=== PATIENT | female | born 1940 | race Caucasian/White ===

== ENCOUNTER → 2016-08-28 | Outpatient (CLI) | payer MEDICARE, BC ==
[2016-08-28 11:58] LABS: CH 29.6; CHCM 32.4; HCT 41.7 % (34.0-46.0); HDW 2.75; HGB 13.3 gm/dL (11.4-16.0); MCH 29.4 pg (25.0-35.0); MCV 91.7 fL (80.0-100.0); Mean Platelet Volume 7.7; RBC 4.54 m/uL (3.80-5.40); RDW 12.8 % (11.5-15.5); WBC 8.1 k/uL (3.8-10.6)
[2016-08-28 12:42] LABS: Calcium 9.9 mg/dL (8.4-10.2); Potassium 4.5 mmol/L (3.5-5.1); Total Bilirubin 0.5 mg/dL (0.2-1.3); Total Protein 7.6 g/dL (6.3-8.2)
[2016-08-28 14:05] LABS: Hemoglobin A1C 6.2 % (4.2-6.1)
== END | disposition home or self-care (01) ==
LOC: LABWHC1 11:28
PROVIDERS: ATTEND Psychiatry & Neurology Psychiatry
DX: D64.9 Anemia, unspecified (principal); E11.9 Type 2 diabetes mellitus without complications; E78.5 Hyperlipidemia, unspecified; E03.9 Hypothyroidism, unspecified
CPT/HCPCS: 36415; 80053; 80061; 83036; 84439; 84443; 85027

== ENCOUNTER → 2017-02-15 | Outpatient (CLI) | payer MEDICARE, BC ==
[2017-02-15 13:30] LABS: CH 29.2; CHCM 33.5; HCT 36.3 % (34.0-46.0); HDW 2.62; HGB 12.7 gm/dL (11.4-16.0); MCH 30.6 pg (25.0-35.0); MCHC 34.9 g/dL (31.0-37.0); MCV 87.5 fL (80.0-100.0); Mean Platelet Volume 7.1; RBC 4.15 m/uL (3.80-5.40); RDW 13.5 % (11.5-15.5); WBC 8.2 k/uL (3.8-10.6)
[2017-02-15 13:39] LABS: Anion Gap 13 mmol/L; Blood Urea Nitrogen 15 mg/dL (7-17); Calcium 9.7 mg/dL (8.4-10.2); Carbon Dioxide 24 mmol/L (22-30); Chloride 106 mmol/L (98-107); Glucose 111 mg/dL (74-99); Non-African American GFR(MDRD) 54 (>60 ml/min/1.73 sqM); Potassium 4.3 mmol/L (3.5-5.1); Sodium 143 mmol/L (137-145)
== END | disposition home or self-care (01) ==
LOC: LABWHC1 12:27
PROVIDERS: ATTEND Psychiatry & Neurology Psychiatry
DX: E03.9 Hypothyroidism, unspecified (principal)
CPT/HCPCS: 36415; 80048; 84439; 84443; 85027

== ENCOUNTER → 2017-06-23 | Outpatient (CLI) | payer MEDICARE, BC | END | disposition home or self-care (01) | LOC: LABWHC1 13:02 | PROVIDERS: ATTEND Psychiatry & Neurology Psychiatry | DX: E03.9 Hypothyroidism, unspecified (principal) | CPT/HCPCS: 36415; 84439; 84443 ==

== ENCOUNTER 2017-12-03 13:39 | Inpatient (IN) | payer MEDICARE, BC ==
[2017-12-03] MEDS ORDERED: ONDANSETRON 4 MG/2 ML VIAL IVP STA (13:57)
[2017-12-03] MEDS ORDERED: SODIUM CHLORIDE 0.9% 1,000 ML IV STA (13:57)
[2017-12-03] MEDS ORDERED: MORPHINE SULFATE 4 MG/0.8 ML SYRINGE (INJ) IV STA (13:57)
--- NOTE | 2017-12-03 14:00 | ED ---
Nausea/Vomiting/Diarrhea HPI - General Chief complaint: Nausea/Vomiting/Diarrhea Stated complaint: Nausea/Vomiting Time Seen by Provider: 12/03/17 13:40 Source: patient Mode of arrival: EMS Limitations: no limitations - History of Present Illness Initial comments: Patient is a 77-year-old female presenting for abdominal pain and nausea/ vomiting. Patient states that this morning, she started coughing and vomiting up bile. It is also associated with lower abdominal pain is described as a pressure and constant without radiation. states that she's vomited at least 50 times but no diarrhea. She also denies any fevers or chills and admits to some dizziness as well as blood in her urine. She does have a history of kidney stones as well but no other intra-abdominal pathology recently. She states that she does have a history of appendectomy and her gallbladder has been taken out. - Related Data Home Medications Medication Instructions Recorded Confirmed Budesonide [Rhinocort Allergy] 1 spr EA NOSTRIL DAILY PRN 11/18/15 12/03/17 Cyclobenzaprine [Flexeril] 10 mg PO HS 11/18/15 12/03/17 Gabapentin [Neurontin] 100 mg PO BID 11/18/15 12/03/17 Gabapentin [Neurontin] 300 mg PO HS 11/18/15 12/03/17 Naproxen Sodium [Aleve] 220 mg PO Q12HR PRN 11/18/15 12/03/17 Omeprazole 20 mg PO HS 11/18/15 12/03/17 PARoxetine HCL [Paxil] 40 mg PO HS 11/18/15 12/03/17 Simvastatin [Zocor] 20 mg PO HS 11/18/15 12/03/17 Levothyroxine Sodium [Synthroid] 50 mcg PO QAM 07/05/16 12/03/17 Allergies Allergy/AdvReac Type Severity Reaction Status Date / Time metronidazole [From Flagyl] Allergy Swelling Verified 12/03/17 13:40 Review of Systems ROS Statement: Those systems with pertinent positive or pertinent negative responses have been documented in the HPI. Constitutional: Negative for chills, fatigue and fever. HENT: Negative for congestion. Respiratory: Negative for chest tightness, shortness of breath and wheezing. Negative for cough Cardiovascular: Negative for chest pain and palpitations. Gastrointestinal: Positive for abdominal pain. Negative for abdominal distention , diarrhea, positive for nausea and vomiting. Genitourinary: Negative for dysuria. Positive for hematuria Musculoskeletal: Positive for chronic back pain, neck pain and neck stiffness. Skin: Negative for color change. Neurological: Positive for dizziness, negative for speech difficulty, weakness and light-headedness. Psychiatric/Behavioral: Negative for agitation and confusion. The patient is not nervous/anxious. ROS Other: All systems not noted in ROS Statement are negative. Past Medical History Past Medical History: Fibromyalgia, GERD/Reflux, Hyperlipidemia Additional Past Medical History / Comment(s): LUMBAR PAIN. MULTIPLE KIDNEY. History of Any Multi-Drug Resistant Organisms: None Reported Past Surgical History: Adenoidectomy, Breast Surgery, Cholecystectomy, Tonsillectomy Additional Past Surgical History / Comment(s): 11/19/15 LEFT NEPHROLITHOTOMY. BREAST BX-NEG. Past Anesthesia/Blood Transfusion Reactions: Motion Sickness, Postoperative Nausea & Vomiting (PONV) Past Psychological History: Depression Smoking Status: Never smoker Past Alcohol Use History: None Reported Past Drug Use History: None Reported - Past Family History Brother(s) Family Medical History: Cancer Mother Family Medical History: No Reported History General Exam - General Exam Comments Initial Comments: Constitutional: Pt is oriented to person, place, and time. Pt appears well- developed and well-nourished. No distress. HENT: Head: Normocephalic and atraumatic. Eyes: EOM are normal. Neck: Normal range of motion. Neck supple. Cardiovascular: Normal rate, regular rhythm, S1 normal, S2 normal and normal heart sounds. Exam reveals no gallop and no friction rub. No murmur heard. Pulmonary/Chest: Effort normal and breath sounds normal. No tachypnea and no bradypnea. No respiratory distress. No wheezes or rales noted. Abdominal: Soft. Bowel sounds are normal. Pt exhibits no shifting dullness, no distension, no pulsatile liver, no fluid wave, no abdominal bruit and no ascites. There is mild tenderness to palpation of the lower abdomen at the suprapubic area. There is no rigidity, no rebound, no guarding, no tenderness at McBurney's point and negative Mijares's sign. Musculoskeletal: Normal range of motion. Neurological: Pt is alert and oriented to person, place, and time. No cranial nerve deficit. Skin: Skin is warm and dry. No rash noted. Pt is not diaphoretic. No erythema. No pallor. Psychiatric: Pt has a normal mood and affect. Pt behavior is normal. Thought content normal. Limitations: no limitations Course Vital Signs 12/03/17 12/03/17 12/03/17 13:40 14:55 17:16 Temperature 96.9 F L 96.8 F L 96.7 F L Pulse Rate 90 89 96 Respiratory 17 18 17 Rate Blood Pressure 174/87 163/80 139/69 O2 Sat by Pulse 96 93 L 96 Oximetry Medical Decision Making - Medical Decision Making Labs showed that there was leukocytosis of 15.1 and lactic acid was elevated at 2.9. Kidney function was preserved with a creatinine of 0.72 and BUS 23. A letter lites were also relatively within normal limits and there is no transaminitis or evidence of pancreatitis. Cardiac evaluation revealed that troponin was within normal limits and EKG showed no significant abnormalities. Patient was given fluids as well as morphine and Zofran but continued to have pain. Urinalysis was consistent for hematuria and borderline urinary tract infection. CT of the abdomen was performed and showed an obstructing 8 mm stone at the left UVJ as well as multiple stones in the right side that were nonobstructing. Because the patient continued to have pain as well as the findings on laboratory studies with the leukocytosis and elevated lactic acid, it was felt that the patient should be admitted to the hospital. Additionally, the patient was started on Rocephin .Explained all labs and diagnostic test results and that we will admit patient to hospital. Pt is agreeable to plan and case has been discussed with and they agree to accept the pt. case was also discussed with . - Lab Data Result diagrams: 12/03/17 13:48 12/03/17 13:48 Lab Results 12/03/17 12/03/17 12/03/17 Range/Units 13:48 13:48 13:48 WBC 15.1 H (3.8-10.6) k/uL RBC 4.23 (3.80-5.40) m/uL Hgb 12.5 (11.4-16.0) gm/dL Hct 38.3 (34.0-46.0) % MCV 90.5 (80.0-100.0) fL MCH 29.6 (25.0-35.0) pg MCHC 32.8 (31.0-37.0) g/dL RDW 13.1 (11.5-15.5) % Plt Count 252 (150-450) k/uL Neutrophils % 77 % Lymphocytes % 15 % Monocytes % 6 % Eosinophils % 0 % Basophils % 0 % Neutrophils # 11.7 H (1.3-7.7) k/uL Lymphocytes # 2.3 (1.0-4.8) k/uL Monocytes # 0.9 (0-1.0) k/uL Eosinophils # 0.0 (0-0.7) k/uL Basophils # 0.0 (0-0.2) k/uL Sodium 143 (137-145) mmol/L Potassium 3.8 (3.5-5.1) mmol/L Chloride 104 (98-107) mmol/L Carbon Dioxide 24 (22-30) mmol/L Anion Gap 15 mmol/L BUN 23 H (7-17) mg/dL Creatinine 0.72 (0.52-1.04) mg/dL Est GFR (CKD-EPI)AfAm >90 (>60 ml/min/1.73 sqM) Est GFR (CKD-EPI)NonAf 82 (>60 ml/min/1.73 sqM) Glucose 152 H (74-99) mg/dL Lactic Ac Sepsis Rflx Plasma Lactic Acid Ezra (0.7-2.0) mmol/L Calcium 9.1 (8.4-10.2) mg/dL Magnesium 1.6 (1.6-2.3) mg/dL Total Bilirubin 0.5 (0.2-1.3) mg/dL AST 30 (14-36) U/L ALT 33 (9-52) U/L Alkaline Phosphatase 82 (38-126) U/L Troponin I <0.012 (0.000-0.034) ng/mL Total Protein 6.6 (6.3-8.2) g/dL Albumin 3.9 (3.5-5.0) g/dL Lipase 93 (23-300) U/L Urine Color Urine Appearance (Clear) Urine pH (5.0-8.0) Ur Specific [place] (1.001-1.035) Urine Protein (Negative) Urine Glucose (UA) (Negative) Urine Ketones (Negative) Urine Blood (Negative) Urine Nitrite (Negative) Urine Bilirubin (Negative) Urine Urobilinogen (<2.0) mg/dL Ur Leukocyte Esterase (Negative) Urine RBC (0-5) /hpf Urine WBC (0-5) /hpf Ur Squamous Epith Cells (0-4) /hpf Urine Mucus (None) /hpf 12/03/17 12/03/17 12/03/17 Range/Units 14:07 14:25 15:13 WBC (3.8-10.6) k/uL RBC (3.80-5.40) m/uL Hgb (11.4-16.0) gm/dL Hct (34.0-46.0) % MCV (80.0-100.0) fL MCH (25.0-35.0) pg MCHC (31.0-37.0) g/dL RDW (11.5-15.5) % Plt Count (150-450) k/uL Neutrophils % % Lymphocytes % % Monocytes % % Eosinophils % % Basophils % % Neutrophils # (1.3-7.7) k/uL Lymphocytes # (1.0-4.8) k/uL Monocytes # (0-1.0) k/uL Eosinophils # (0-0.7) k/uL Basophils # (0-0.2) k/uL Sodium (137-145) mmol/L Potassium (3.5-5.1) mmol/L Chloride (98-107) mmol/L Carbon Dioxide (22-30) mmol/L Anion Gap mmol/L BUN (7-17) mg/dL Creatinine (0.52-1.04) mg/dL Est GFR (CKD-EPI)AfAm (>60 ml/min/1.73 sqM) Est GFR (CKD-EPI)NonAf (>60 ml/min/1.73 sqM) Glucose (74-99) mg/dL Lactic Ac Sepsis Rflx Y Plasma Lactic Acid Ezra 2.9 H* (0.7-2.0) mmol/L Calcium (8.4-10.2) mg/dL Magnesium (1.6-2.3) mg/dL Total Bilirubin (0.2-1.3) mg/dL AST (14-36) U/L ALT (9-52) U/L Alkaline Phosphatase (38-126) U/L Troponin I (0.000-0.034) ng/mL Total Protein (6.3-8.2) g/dL Albumin (3.5-5.0) g/dL Lipase (23-300) U/L Urine Color Light Yellow Urine Appearance Clear (Clear) Urine pH 7.0 (5.0-8.0) Ur Specific [place] 1.011 (1.001-1.035) Urine Protein Trace H (Negative) Urine Glucose (UA) Trace H (Negative) Urine Ketones Negative (Negative) Urine Blood Moderate H (Negative) Urine Nitrite Negative (Negative) Urine Bilirubin Negative (Negative) Urine Urobilinogen <2.0 (<2.0) mg/dL Ur Leukocyte Esterase Trace H (Negative) Urine RBC 121 H (0-5) /hpf Urine WBC 8 H (0-5) /hpf Ur Squamous Epith Cells <1 (0-4) /hpf Urine Mucus Rare H (None) /hpf - EKG Data EKG Comments: EKG shows normal sinus rhythm with intermittent PVCs. Rate is 86 bpm, WA interval 168, QRS 76, QTC 459. There is no significant ST depressions or elevations noted in any of the leads. Disposition Clinical Impression: Renal calculi, Elevated lactic acid level, Intractable abdominal pain, Hydronephrosis, left Disposition: ADMITTED IP TO THIS [facility] Condition: Stable Referrals: Asaf Phillip DO [Primary Care Provider] - 1-2 days Decision to Admit Reason: Admit from EC Decision Date: 12/03/17 Decision Time: 17:15
[2017-12-03 14:13] LABS: Basophils % (A) 0 %; Eosinophils % (A) 0 %; HCT 38.3 % (34.0-46.0); HGB 12.5 gm/dL (11.4-16.0); Lymphocytes # (A) 2.3 k/uL (1.0-4.8); Lymphocytes % (A) 15 %; MCH 29.6 pg (25.0-35.0); MCHC 32.8 g/dL (31.0-37.0); MCV 90.5 fL (80.0-100.0); Mean Platelet Volume 7.9; Monocytes # (A) 0.9 k/uL (0-1.0); Monocytes % (A) 6 %; Neutrophils # (A) 11.7 k/uL (1.3-7.7); Neutrophils % (A) 77 %; Platelet Count 252 k/uL (150-450); RBC 4.23 m/uL (3.80-5.40); RDW 13.1 % (11.5-15.5); WBC 15.1 k/uL (3.8-10.6)
[2017-12-03] MEDS: SODIUM CHLORIDE 0.9% 1,000 ML IV STA (14:13)
[2017-12-03 14:23] LABS: ALT 33 U/L (9-52); AST 30 U/L (14-36); Albumin 3.9 g/dL (3.5-5.0); Alkaline Phosphatase 82 U/L (38-126); Anion Gap 15 mmol/L; Blood Urea Nitrogen 23 mg/dL (7-17); Calcium 9.1 mg/dL (8.4-10.2); Carbon Dioxide 24 mmol/L (22-30); Chloride 104 mmol/L (98-107); Glucose 152 mg/dL (74-99); Lipase 93 U/L (23-300); Magnesium 1.6 mg/dL (1.6-2.3); Potassium 3.8 mmol/L (3.5-5.1); Sodium 143 mmol/L (137-145); Total Bilirubin 0.5 mg/dL (0.2-1.3); Total Protein 6.6 g/dL (6.3-8.2)
[2017-12-03 15:22] LABS: Appearance,Urine Clear (Clear); Bilirubin,Urine Negative (Negative); Blood,Urine Moderate (Negative); Color,Urine Light Yellow; Glucose,Urine (UA) Trace (Negative); Ketones,Urine Negative (Negative); Leukocyte Esterase,Urine Trace (Negative); Mucus,Urine Rare /hpf; Nitrite,Urine Negative (Negative); Protein,Urine Trace (Negative); RBC,Urine 121 /hpf (0-5); Specific Gravity,Urine 1.011 (1.001-1.035); Squamous Epithelial Cell,Urine <1 /hpf (0-4); Urobilinogen,Urine <2.0 mg/dL (<2.0); WBC,Urine 8 /hpf (0-5)
[2017-12-03] MEDS ORDERED: cefTRIAXone IN SWFI 1,000 MG/10 ML SYRINGE IVP STA (15:27)
--- NOTE | 2017-12-03 15:36 | CT ---
EXAMINATION TYPE: CT abdomen pelvis wo con DATE OF EXAM: 12/03/2017 COMPARISON: 09/04/2015 HISTORY: 77-year-old female Nausea, vomiting. Pain, evaluate for renal stone CT DLP: 428.7 mGycm. Automated exposure control for dose reduction was used. TECHNIQUE: Contiguous axial scanning of the abdomen and pelvis without IV contrast. Coronal and sagit natalie reconstructions performed. FINDINGS: Imaging did not extend through the hepatic dome. Mild dependent atelectasis. Tiny hiatal hernia. Noncontrast appearance of the visualized liver, adrenal glands, spleen with a hilar splenule, and contreras creas show no gross abnormal mobility. There is an extrarenal pelvis on the right with 3 nonobstructive calculi measuring up to 1 cm in smal lest measuring 4 mm. The larger one similar calculus is in the upper pole calyceal system. On the left, there is an 8 mm nonobstructive lower pole calculus and a 8 mm obstructing calculus at t he UPJ causing [id number] hydronephrosis. No dilated small bowel, free fluid, or free air. No mesenteric or retroperitoneal lymphadenopathy. Mild stool burden. No pericolonic inflammatory change. Bladder is urine distended. The bladder is distended prominently up to 15.0 cm cranial caudal. Uteru s and small ovaries are visualized. No abnormal fluid collection in the pelvis or pelvic lymphadenopa thy. Bones: Degenerative changes mid to lower lumbar spine. No osseous destructive process. IMPRESSION: 1. An 8 mm calculus at the left UPJ causing mild to moderate obstructive uropathy. Additional 8 mm n onobstructive left lower pole renal calculus. 2. 3 nonobstructive calculi on the right measuring up to 1 cm. This largest 1 cm calculus is in the upper pole calyceal system and may soon pass into the ureter. 3. Prominent distention of the urinary bladder up to 15 cm. Please correlate to ensure that this rep resents voluntary retention.
[2017-12-03] MEDS ORDERED: MORPHINE SULFATE 4 MG/0.8 ML SYRINGE (INJ) IVP STA (15:39)
[2017-12-03] MEDS ORDERED: SODIUM CHLORIDE 0.9% 1,000 ML IV ONE (15:39)
[2017-12-03] MEDS ORDERED: NALOXONE 0.4 MG/ML 1 ML VIAL IV PRN (17:53)
[2017-12-03] MEDS ORDERED: MORPHINE SULFATE 4 MG/0.8 ML SYRINGE (INJ) IV PRN (17:53)
[2017-12-03] MEDS ORDERED: ONDANSETRON 4 MG/2 ML VIAL IVP PRN (17:53)
[2017-12-03] MEDS ORDERED: ACETAMINOPHEN TAB 325 MG TAB PO PRN (17:53)
[2017-12-03 18:48] VITALS: BMI 26.8
[2017-12-03 22:37] VITALS: RESP 18
[2017-12-04] MEDS: PIPERACILLIN-TAZOBACTAM 3.375 GM in DEXTROSE/WATER 1 50ML.BAG IVPB SCH ×2 (00:49→07:59)
[2017-12-04] MEDS: SODIUM CHLORIDE 0.9% 1,000 ML IV STA (06:43)
[2017-12-04 08:05] VITALS: BP 162/85; PULSE 76; TEMP 97.9
--- NOTE | 2017-12-04 09:02 | P.GSCN ---
History of Present Illness Consult date: 12/04/17 History of present illness: I was asked to see this pleasant 77-year-old female for left ureteral stone. She presented to the emergency room with a short period of severe nausea vomiting and flank pain. The patient has a known history of kidney stones. I' ve done bilateral percutaneous nephrostolithotomy is on her. Her computed tomography scan identified an 8 mm proximal ureteral stone on the left and bilateral renal stones each about 7 mm in diameter. He was brought in the hospital for pain control and IV fluids. Her pain has been under control at this point in time. He's had no fever or chills. There is no evidence of infection. She did have some lower urinary tract symptoms but I do think this is unrelated to her stones. Review of Systems - Constitutional Reports as per HPI - Genitourinary Genitourinary: Reports as per HPI, Reports urgency, Reports urinary frequency Past Medical History Past Medical History: Fibromyalgia, GERD/Reflux, Hyperlipidemia Additional Past Medical History / Comment(s): LUMBAR PAIN. MULTIPLE KIDNEY. History of Any Multi-Drug Resistant Organisms: None Reported Past Surgical History: Adenoidectomy, Breast Surgery, Cholecystectomy, Tonsillectomy Additional Past Surgical History / Comment(s): 11/19/15 LEFT NEPHROLITHOTOMY. BREAST BX-NEG. Past Anesthesia/Blood Transfusion Reactions: Motion Sickness, Postoperative Nausea & Vomiting (PONV) Past Psychological History: Depression Smoking Status: Never smoker Past Alcohol Use History: None Reported Past Drug Use History: None Reported - Past Family History Brother(s) Family Medical History: Cancer Mother Family Medical History: No Reported History Medications and Allergies Home Medications Medication Instructions Recorded Confirmed Type Gabapentin [Neurontin] 300 mg PO BID 11/18/15 12/03/17 History Omeprazole 20 mg PO DAILY 11/18/15 12/03/17 History PARoxetine HCL [Paxil] 40 mg PO DAILY 11/18/15 12/03/17 History Simvastatin [Zocor] 20 mg PO HS 11/18/15 12/03/17 History Levothyroxine Sodium [Synthroid] 25 mcg PO DAILY 12/03/17 12/03/17 History Allergies Allergy/AdvReac Type Severity Reaction Status Date / Time metronidazole [From Flagyl] Allergy Swelling Verified 12/03/17 18:36 Surgical - Exam Vital Signs Temp Pulse Resp BP Pulse Ox 96.9 F L 90 17 174/87 96 12/03/17 13:40 12/03/17 13:40 12/03/17 13:40 12/03/17 13:40 12/03/17 13:40 - General well developed, well nourished, no distress - Eyes PERRL - ENT no hearing loss - Neck trachea midline - Respiratory normal expansion, normal respiratory effort - Cardiovascular Rhythm: regular - Abdomen Abdomen: soft, non tender - Integumentary no rash - Neurologic normal coordination, normal sensation - Musculoskeletal normal posture - Psychiatric oriented to time, oriented to person, oriented to place, speech is normal, memory intact Results - Labs 12/03/17 13:48 12/03/17 13:48 Abnormal Lab Results - Last 24 Hours (Table) 12/03/17 12/03/17 12/03/17 Range/Units 13:48 13:48 14:07 WBC 15.1 H (3.8-10.6) k/uL Neutrophils # 11.7 H (1.3-7.7) k/uL BUN 23 H (7-17) mg/dL Glucose 152 H (74-99) mg/dL Plasma Lactic Acid Ezra 2.9 H* (0.7-2.0) mmol/L Urine Protein (Negative) Urine Glucose (UA) (Negative) Urine Blood (Negative) Ur Leukocyte Esterase (Negative) Urine RBC (0-5) /hpf Urine WBC (0-5) /hpf Urine Mucus (None) /hpf 12/03/17 Range/Units 15:13 WBC (3.8-10.6) k/uL Neutrophils # (1.3-7.7) k/uL BUN (7-17) mg/dL Glucose (74-99) mg/dL Plasma Lactic Acid Ezra (0.7-2.0) mmol/L Urine Protein Trace H (Negative) Urine Glucose (UA) Trace H (Negative) Urine Blood Moderate H (Negative) Ur Leukocyte Esterase Trace H (Negative) Urine RBC 121 H (0-5) /hpf Urine WBC 8 H (0-5) /hpf Urine Mucus Rare H (None) /hpf Microbiology - Last 24 Hours (Table) 12/03/17 15:13 Urine Culture - Preliminary Urine,Catheterized Diabetes panel 12/03/17 Range/Units 13:48 Sodium 143 (137-145) mmol/L Potassium 3.8 (3.5-5.1) mmol/L Chloride 104 (98-107) mmol/L Carbon Dioxide 24 (22-30) mmol/L BUN 23 H (7-17) mg/dL Creatinine 0.72 (0.52-1.04) mg/dL Glucose 152 H (74-99) mg/dL Calcium 9.1 (8.4-10.2) mg/dL AST 30 (14-36) U/L ALT 33 (9-52) U/L Alkaline Phosphatase 82 (38-126) U/L Total Protein 6.6 (6.3-8.2) g/dL Albumin 3.9 (3.5-5.0) g/dL Calcium panel 12/03/17 Range/Units 13:48 Calcium 9.1 (8.4-10.2) mg/dL Albumin 3.9 (3.5-5.0) g/dL Pituitary panel 12/03/17 Range/Units 13:48 Sodium 143 (137-145) mmol/L Potassium 3.8 (3.5-5.1) mmol/L Chloride 104 (98-107) mmol/L Carbon Dioxide 24 (22-30) mmol/L BUN 23 H (7-17) mg/dL Creatinine 0.72 (0.52-1.04) mg/dL Glucose 152 H (74-99) mg/dL Calcium 9.1 (8.4-10.2) mg/dL Adrenal panel 12/03/17 Range/Units 13:48 Sodium 143 (137-145) mmol/L Potassium 3.8 (3.5-5.1) mmol/L Chloride 104 (98-107) mmol/L Carbon Dioxide 24 (22-30) mmol/L BUN 23 H (7-17) mg/dL Creatinine 0.72 (0.52-1.04) mg/dL Glucose 152 H (74-99) mg/dL Calcium 9.1 (8.4-10.2) mg/dL Total Bilirubin 0.5 (0.2-1.3) mg/dL AST 30 (14-36) U/L ALT 33 (9-52) U/L Alkaline Phosphatase 82 (38-126) U/L Total Protein 6.6 (6.3-8.2) g/dL Albumin 3.9 (3.5-5.0) g/dL - Imaging CT scan - abdomen: report reviewed, image reviewed CT scan - pelvis: report reviewed, image reviewed Assessment and Plan Assessment: Impression: Left ureteral calculus with obstruction. Bilateral renal stones. Recommendation: The patient is comfortable from a urologic standpoint she can be discharged home. We discussed all the treatment options. She will attempt to spontaneously pass the stone this week. If she fails she'll be set up for shockwave lithotripsy a week from Tuesday. Is been instructed to contact the office for follow-up. She's also been instructed to contact the office at any time if the flank pain returns.
[2017-12-04] MEDS ORDERED: cefTRIAXone IN SWFI 1,000 MG/10 ML SYRINGE IVP SCH (16:00)
--- NOTE | 2017-12-04 17:35 | P.DS ---
Providers Date of admission: 12/03/17 17:53 Attending physician: Miguel Lopez MD Consults: 12/03/17 17:58 Consult Physician Routine Consulting Provider: Haroon Tang Consult Reason/Comments: Renal calculi with hydronephrosis Do you want consulting provider notified?: Already Contacted Primary care physician: Asaf Phillip [facility] Course: Please refer to my HPI Patient Condition at Discharge: Stable Plan - Discharge Summary New Discharge Prescriptions: No Action Gabapentin [Neurontin] 300 mg PO BID Simvastatin [Zocor] 20 mg PO HS PARoxetine HCL [Paxil] 40 mg PO DAILY Omeprazole 20 mg PO DAILY Levothyroxine Sodium [Synthroid] 25 mcg PO DAILY Discharge Medication List Gabapentin [Neurontin] 300 mg PO BID 11/18/15 [History] Omeprazole 20 mg PO DAILY 11/18/15 [History] PARoxetine HCL [Paxil] 40 mg PO DAILY 11/18/15 [History] Simvastatin [Zocor] 20 mg PO HS 11/18/15 [History] Levothyroxine Sodium [Synthroid] 25 mcg PO DAILY 12/03/17 [History] Follow up Appointment(s)/Referral(s): Asaf Phillip DO [Primary Care Provider] - 1-2 days Haroon Tang MD [STAFF PHYSICIAN] - 1 Week Patient Instructions/Handouts: Kidney Stones (GEN), Renal Colic (GEN) Activity/Diet/Wound Care/Special Instructions: Call Dr Tang's office on Tuesday to set up an appointment for shock wave therapy. Drink plenty of fluids. Strain your urine. Call Dr. Tang if you experience increase in pain, fever, vomitting, or if you have any other concerns or questions. May take Aleive for pain. Discharge Disposition: HOME SELF-CARE
--- NOTE | 2017-12-04 17:35 | P.HPIM ---
History of Present Illness 77-year-old female presented with the left to severe crampy and sharp for flank pain found to have a lesser degree rectal stone pain significant improved now patient was evaluated neurology patient was having nausea vomiting resulting and lactic acidosis which improved with IV fluids. Patient has leukocytosis which is reactive patient urine is not impressive for urinary tract infection patient doesn't have any fever dysuria neurology as they are not requiring antibiotics and I do not believe patient has urinary tract infection or sepsis at this time I do not believe she she will require antibiotics. But patient was advised to call urology if she ends up having fever. Patient will follow- up with urology as an outpatient for systolic with lithotripsy if needed on Tuesday patient is known to urology and had percutaneous nephrostomy in the past. Review of Systems REVIEW OF SYSTEMS: CONSTITUTIONAL: No fever, no malaise, no fatigue. HEENT: No recent visual problems or hearing problems. Denied any sore throat. CARDIOVASCULAR: No chest pain, orthopnea, PND, no palpitations, no syncope. PULMONARY: No shortness of breath, no cough, no hemoptysis. GASTROINTESTINAL: No diarrhea, no nausea, no vomiting, Normoactive bowel sounds. NEUROLOGICAL: No headaches, no weakness, no numbness. HEMATOLOGICAL: Denies any bleeding or petechiae. GENITOURINARY: Denies any burning micturition, frequency, or urgency. MUSCULOSKELETAL/RHEUMATOLOGICAL: Denies any joint pain, swelling, or any muscle pain. ENDOCRINE: Denies any polyuria or polydipsia. The rest of the 14-point review of systems is negative. Past Medical History Past Medical History: Fibromyalgia, GERD/Reflux, Hyperlipidemia Additional Past Medical History / Comment(s): LUMBAR PAIN. MULTIPLE KIDNEY. History of Any Multi-Drug Resistant Organisms: None Reported Past Surgical History: Adenoidectomy, Breast Surgery, Cholecystectomy, Tonsillectomy Additional Past Surgical History / Comment(s): 11/19/15 LEFT NEPHROLITHOTOMY. BREAST BX-NEG. Past Anesthesia/Blood Transfusion Reactions: Motion Sickness, Postoperative Nausea & Vomiting (PONV) Past Psychological History: Depression Smoking Status: Never smoker Past Alcohol Use History: None Reported Past Drug Use History: None Reported - Past Family History Brother(s) Family Medical History: Cancer Mother Family Medical History: No Reported History Medications and Allergies Home Medications Medication Instructions Recorded Confirmed Type Gabapentin [Neurontin] 300 mg PO BID 11/18/15 12/03/17 History Omeprazole 20 mg PO DAILY 11/18/15 12/03/17 History PARoxetine HCL [Paxil] 40 mg PO DAILY 11/18/15 12/03/17 History Simvastatin [Zocor] 20 mg PO HS 11/18/15 12/03/17 History Levothyroxine Sodium [Synthroid] 25 mcg PO DAILY 12/03/17 12/03/17 History Allergies Allergy/AdvReac Type Severity Reaction Status Date / Time metronidazole [From Flagyl] Allergy Swelling Verified 12/03/17 18:36 Physical Exam Vitals: Vital Signs Temp Pulse Pulse Pulse Resp BP BP 12/04/17 08:02 97.9 F 76 18 162/85 12/04/17 08:00 76 12/04/17 06:54 97.8 F 99 18 161/89 12/04/17 02:00 98 F 98 18 130/73 12/04/17 00:00 95 18 12/03/17 19:50 95 18 12/03/17 19:38 97.6 F 95 16 145/79 12/03/17 19:19 97.9 F 95 18 163/83 12/03/17 18:11 97.4 F L 97 17 144/69 Pulse Ox 12/04/17 08:02 95 12/04/17 08:00 12/04/17 06:54 95 12/04/17 02:00 96 12/04/17 00:00 12/03/17 19:50 12/03/17 19:38 93 L 12/03/17 19:19 94 L 12/03/17 18:11 94 L Intake and Output 12/04/17 12/04/17 12/04/17 06:59 14:59 22:59 Output Total 1960 1425 Balance -1961 -1425 Output: Urine 1700 1425 Post Void Residual 261 Other: Voiding Method Toilet Toilet # Voids 1 PHYSICAL EXAMINATION: GENERAL: The patient is alert and oriented x3, not in any acute distress. Well developed, well nourished. HEENT: Pupils are round and equally reacting to light. EOMI. No scleral icterus. No conjunctival pallor. Normocephalic, atraumatic. No pharyngeal erythema. No thyromegaly. CARDIOVASCULAR: S1 and S2 present. No murmurs, rubs, or gallops. PULMONARY: Chest is clear to auscultation, no wheezing or crackles. ABDOMEN: Soft, nontender, nondistended, normoactive bowel sounds. No palpable organomegaly. MUSCULOSKELETAL: No joint swelling or deformity. EXTREMITIES: No cyanosis, clubbing, or pedal edema. NEUROLOGICAL: Gross neurological examination did not reveal any focal deficits. SKIN: No rashes. Results CBC & Chem 7: 12/03/17 13:48 12/03/17 13:48 Labs: Microbiology - Last 24 Hours (Table) 12/03/17 15:13 Urine Culture - Preliminary Urine,Catheterized Thrombosis Risk Factor Assmnt - Choose All That Apply Any of the Below Risk Factors Present?: Yes Other Risk Factors: Yes Each Risk Factor Represents 3 Points: Age 75 years or older Thrombosis Risk Factor Assessment Total Risk Factor Score: 3 Thrombosis Risk Factor Assessment Level: Moderate Risk Assessment and Plan Plan: -Left-sided ureteral calculus: Improved pain was evaluated by urology will be discharged home today. --hyperlipidemia gastroesophageal reflux disease -Fibromyalgia -Depression For above-mentioned chronic medical problems patient will continue her home medications without any changes and she will not require any antibiotics at this time.
== END 2017-12-04 13:11 | disposition home or self-care (01) | DRG 694 ==
LOC: EC 13:39 → 6PED 17:53
PROVIDERS: ADMIT Internal Medicine; ATTEND Internal Medicine
DX: N13.2 Hydronephrosis with renal and ureteral calculous obstruction (principal); E87.2 Acidosis; E78.5 Hyperlipidemia, unspecified; K21.9 Gastro-esophageal reflux disease without esophagitis; M79.7 Fibromyalgia; F32.9 Major depressive disorder, single episode, unspecified; Z79.890 Hormone replacement therapy; Z79.899 Other long term (current) drug therapy; Z90.49 Acquired absence of other specified parts of digestive tract; Z87.442 Personal history of urinary calculi; Z88.8 Allergy status to other drugs, medicaments and biological substances
CPT/HCPCS: 36415; 74176; 80053; 81001; 83605; 83690; 83735; 84484; 85025; 87040; 87086; 93005; 96361; 96374; 96375; 96376; 99285

== ENCOUNTER → 2017-12-20 | Outpatient (CLI) | payer MEDICARE, BC ==
--- NOTE | 2017-12-20 09:28 | XR ---
EXAMINATION TYPE: XR KUB DATE OF EXAM: 12/20/2017 8:52 AM CLINICAL HISTORY: Status post left-sided lithotripsy TECHNIQUE: Single supine KUB image of the abdomen is obtained. COMPARISON: CT dated 12/03/2017 FINDINGS: There is redemonstration of a known 3 right renal calculi measuring approximately 1.4 cm, 0 .7 cm, and 0.4 cm. There is a punctate 3 mm left renal calculus visualized. The previously seen on CT calculus at the left ureterovesicular junction is no longer present. Phleboliths within the pelvis a ppear similar to the prior exam of 07/07/2016. Scattered gas is seen in non-distended small bowel loo ps. Gas and fecal material is seen in non-distended colon. Degenerative changes of the lumbosacral ju nction are moderate. Cholecystectomy clips are partially visualized. Mild femoral acetabular arthropa thy. The lung bases are clear and the osseous structures are intact. IMPRESSION: 1. The previously seen left ureteropelvic junction calculus is no longer evident status post lithotri psy. 3 mm left sided calculus remains. 2. The 3 known right renal calculi are visualized radiographically.
== END | disposition home or self-care (01) ==
LOC: RADXRMAIN 08:38
PROVIDERS: ATTEND Urology
DX: N20.0 Calculus of kidney (principal); Z98.890 Other specified postprocedural states
CPT/HCPCS: 74018

== ENCOUNTER → 2018-06-02 | Outpatient (CLI) | payer MEDICARE, BC ==
[2018-06-02 13:25] LABS: Basophils # (A) 0.1 k/uL (0-0.2); Basophils % (A) 1 %; Eosinophils # (A) 0.5 k/uL (0-0.7); Eosinophils % (A) 5 %; HCT 39.2 % (34.0-46.0); HGB 12.5 gm/dL (11.4-16.0); Lymphocytes # (A) 3.1 k/uL (1.0-4.8); Lymphocytes % (A) 35 %; MCH 28.2 pg (25.0-35.0); MCV 88.1 fL (80.0-100.0); Mean Platelet Volume 6.9; Monocytes # (A) 0.5 k/uL (0-1.0); Monocytes % (A) 6 %; Neutrophils # (A) 4.3 k/uL (1.3-7.7); Neutrophils % (A) 50 %; Platelet Count 273 k/uL (150-450); RBC 4.44 m/uL (3.80-5.40); RDW 14.4 % (11.5-15.5); WBC 8.7 k/uL (3.8-10.6)
[2018-06-02 13:31] LABS: ALT 36 U/L (9-52); AST 54 U/L (14-36); Albumin/Globulin Ratio 1.2; Alkaline Phosphatase 90 U/L (38-126); Anion Gap 10 mmol/L; Blood Urea Nitrogen 13 mg/dL (7-17); Calcium 9.5 mg/dL (8.4-10.2); Carbon Dioxide 27 mmol/L (22-30); Chloride 104 mmol/L (98-107); Globulin 3.3 g/dL; Glucose 108 mg/dL (74-99); Sodium 141 mmol/L (137-145); Total Bilirubin 0.4 mg/dL (0.2-1.3); Total Protein 7.3 g/dL (6.3-8.2)
--- NOTE | 2018-06-02 13:39 | XR ---
EXAMINATION TYPE: XR chest 2V DATE OF EXAM: 06/02/2018 COMPARISON: 07/08/2016 HISTORY: Shortness of breath TECHNIQUE: Frontal and lateral views of the chest are obtained. FINDINGS: Scattered senescent parenchymal changes noted. Hyperinflation compatible with COPD. No evidence for infiltrate. No evidence for atelectasis. Heart size is stable. Mediastinal structures are stable and grossly unremarkable. No evidence for hilar prominence. Degenerative changes dorsal spine. IMPRESSION: 1. No evidence for acute pulmonary disease.
[2018-06-02 13:46] LABS: Prothrombin Time 9.5 sec (9.0-12.0)
[2018-06-02 13:48] LABS: Partial Thromboplastin Time 21.7 sec (22.0-30.0)
== END | disposition home or self-care (01) ==
LOC: LABWHC1 12:57
PROVIDERS: ATTEND Neurological Surgery
DX: Z01.818 Encounter for other preprocedural examination (principal)
CPT/HCPCS: 36415; 71046; 80053; 85025; 85610; 85730; 87070; 87086; 93005

== ENCOUNTER → 2018-08-09 | Outpatient (CLI) | payer MEDICARE, BC ==
[2018-08-09 13:49] LABS: Basophils # (A) 0.1 k/uL (0-0.2); Basophils % (A) 1 %; Eosinophils # (A) 0.3 k/uL (0-0.7); Eosinophils % (A) 3 %; HCT 35.8 % (34.0-46.0); HGB 11.6 gm/dL (11.4-16.0); Hypochromasia Moderate; Lymphocytes # (A) 2.5 k/uL (1.0-4.8); Lymphocytes % (A) 27 %; MCH 28.6 pg (25.0-35.0); MCHC 32.4 g/dL (31.0-37.0); MCV 88.4 fL (80.0-100.0); Mean Platelet Volume 6.8; Monocytes # (A) 0.7 k/uL (0-1.0); Monocytes % (A) 8 %; Neutrophils # (A) 5.5 k/uL (1.3-7.7); Neutrophils % (A) 60 %; Platelet Count 394 k/uL (150-450); RBC 4.05 m/uL (3.80-5.40); RDW 14.2 % (11.5-15.5); WBC 9.2 k/uL (3.8-10.6)
[2018-08-09 19:36] LABS: T4, Free (Free Thyroxine) 1.2 ng/dL (0.80-1.80)
== END ==
LOC: LABWHC1 12:17
PROVIDERS: ATTEND Physician Assistant Medical
DX: L29.8 Other pruritus (principal)
CPT/HCPCS: 36415; 82565; 84439; 84450; 84460; 84520; 85025

== ENCOUNTER → 2018-10-04 | Outpatient (CLI) | payer MEDICARE, BC ==
[2018-10-04 13:35] LABS: HCT 38.5 % (34.0-46.0); HGB 11.8 gm/dL (11.4-16.0); Hypochromasia Slight; MCH 26.7 pg (25.0-35.0); MCHC 30.5 g/dL (31.0-37.0); MCV 87.4 fL (80.0-100.0); Mean Platelet Volume 6.4; Platelet Count 359 k/uL (150-450); RDW 15.6 % (11.5-15.5); WBC 8.7 k/uL (3.8-10.6)
[2018-10-04 21:26] LABS: Albumin 4.1 g/dL (3.80-4.90); Albumin/Globulin Ratio 1.52 (1.60-3.17); Anion Gap 9.6 mmol/L (4.00-12.00); Calcium 9.2 mg/dL (8.7-10.3); Carbon Dioxide 27.4 mmol/L (21.6-31.8); Globulin 2.7 g/dL (1.6-3.3); Potassium 4.3 mmol/L (3.5-5.5); Total Bilirubin 0.3 mg/dL (0.3-1.2); Total Protein 6.8 g/dL (6.2-8.2)
== END | disposition home or self-care (01) ==
LOC: LABWHC1 12:54
PROVIDERS: ATTEND Thoracic Surgery (Cardiothoracic Vascular Surgery)
DX: E03.9 Hypothyroidism, unspecified (principal); E63.8 Other specified nutritional deficiencies
CPT/HCPCS: 36415; 80053; 84134; 84443; 85027

== ENCOUNTER → 2018-10-18 | Outpatient (CLI) | payer MEDICARE, BC ==
--- NOTE | 2018-10-18 15:53 | XR ---
EXAMINATION TYPE: XR lumbar spine with bend/flex DATE OF EXAM: 10/18/2018 CLINICAL HISTORY: Low back surgery TECHNIQUE: Frontal, lateral, and oblique images of the lumbar spine are obtained. COMPARISON: CT abdomen pelvis dated 12/03/2017 FINDINGS: There is a very mild S-shaped scoliotic curvature of the lumbar spine visually with a Martinez angle less than 10 degrees. There is partial resection of the posterior elements at L3-S1. There is an age-indeterminate compression deformity of the L3 vertebral body with vertebral body heig ht loss of approximately 30%. This was not appreciated on the prior exam of 11/25/2017. The lateral view demonstrates no malalignment with slight straightening of the usual lumbar lordosis. Multilevel facet arthropathy is seen. Intervertebral disc space narrowing is present at L4-5 and L5- S1 with small anterior osteophytes throughout the lumbar spine. Flexion and extension imaging on the lateral view demonstrates no evidence of malalignment. Oblique images demonstrate postsurgical change. No significant neural foraminal narrowing is seen rad iographically. IMPRESSION: 1. Age-indeterminate compression deformity of the L3 vertebral body that was not present on the prior of 12/03/2017. Correlate with point tenderness. If there is further concern MRI could assess for bone marrow edema. 2. Postsurgical changes of the lower lumbar spine. No malalignment. Moderate multilevel degenerative change.
== END | disposition home or self-care (01) ==
LOC: RADXRMAIN 14:42
PROVIDERS: ATTEND Neurological Surgery
DX: M54.5 Low back pain (principal); Z98.890 Other specified postprocedural states
CPT/HCPCS: 72114

== ENCOUNTER → 2018-10-25 | Outpatient (CLI) | payer MEDICARE, BC ==
--- NOTE | 2018-10-25 16:07 | MR ---
EXAMINATION TYPE: MR lumbar spine wo con DATE OF EXAM: 10/25/2018 COMPARISON: Plain film 10/18/2017 HISTORY: Stenosis, back pain x 2 years TECHNIQUE: Multiplanar, multisequence images of the lumbar spine were acquired. L1-L2: Normal disc appearance without desiccation. No herniation, protrusion or disc bulging. No ca nal stenosis is present. Foramina are patent bilaterally. L2-L3: There is a minimal retropulsion due to superior endplate fracture, only mild anterior mass eff ect on the thecal sac. Facet arthropathy with hypertrophy of the ligamentum flavum causes posterior l ateral mass effect on the thecal sac. Circumferential extension endplate disc complex extends lateral ly, no significant foraminal encroachment. L3-L4: Circumferential posterior disc bulge causes mild anterior mass effect on the thecal sac. There is facet arthropathy change present. Circumferential extension endplate disc complex results in bila teral foraminal encroachment which is contributed by the listhesis. L4-L5: Circumferential posterior disc bulge contacts the anterior thecal sac and extends laterally to cause some foraminal encroachment greater on the right than on the left possibly contributed by the scoliosis. No significant spinal stenosis. L5-S1: Posterior broad-based disc bulge is present. No evident spinal stenosis. There is facet arthro yesenia change. Circumferential extension endplate disc complex causes some foraminal encroachment grea ter on the left. Lumbar segments are intact. No paraspinal masses are identified. Conus medullaris has a normal appe arance. Anterior wedging present at L3 to the level due to superior endplate fracture, low to interme diate signal present at the superior endplate on T1 and intermediate to high signal on T2-weighted se quences suggesting possible subacute fracture. There is multilevel spondylosis with endplate discogen ic marrow signal change. Loss of disc height signal present at intervertebral levels, there is also v acuum phenomenon present at multiple levels. Minimal retrolisthesis grade 1 L5-S1, L3-4. Postop maldonado es are noted status post posterior fusion, fluid signal posterior to the thecal sac is intermediate o n T1 and increased T2 with internal septations suspected at the site of the patient's prior surgery w hich likely represents seroma but is a postop fluid collection showing mild posterior mass effect on the thecal sac. There is a mild spinal curvature present. IMPRESSION: Postop changes, degenerative disc disease, multilevel foraminal encroachment. Subacute anterior wedge compression deformity L3. There is a spinal curvature. Postop fluid collection is indeterminate and may represent seroma posterior to the thecal sac.
== END ==
LOC: RADMRIMAIN 12:24
PROVIDERS: ATTEND Neurological Surgery
DX: M51.36 Other intervertebral disc degeneration, lumbar region (principal); M43.8X6 Other specified deforming dorsopathies, lumbar region; Z98.890 Other specified postprocedural states
CPT/HCPCS: 72148

== ENCOUNTER → 2019-09-20 | Outpatient (CLI) | payer MEDICARE, BC ==
[2019-09-20 16:53] LABS: HCT 37.2 % (34.0-46.0); HGB 11.7 gm/dL (11.4-16.0); MCH 28.2 pg (25.0-35.0); MCHC 31.4 g/dL (31.0-37.0); Mean Platelet Volume 7.9; Platelet Count 304 k/uL (150-450); RBC 4.13 m/uL (3.80-5.40); RDW 13.6 % (11.5-15.5); WBC 8.8 k/uL (3.8-10.6)
[2019-09-21 02:13] LABS: African American GFR (CKD) 62.5 (60.0-200.0); Albumin 4.1 g/dL (3.80-4.90); Albumin/Globulin Ratio 1.78 (1.60-3.17); Anion Gap 9.7 mmol/L (4.00-12.00); Calcium 8.9 mg/dL (8.7-10.3); Carbon Dioxide 28.3 mmol/L (21.6-31.8); Globulin 2.3 g/dL (1.6-3.3); Non-African American GFR(CKD) 53.9 (60.0-200.0); Total Bilirubin 0.2 mg/dL (0.3-1.2); Total Protein 6.4 g/dL (6.2-8.2)
== END | disposition home or self-care (01) ==
LOC: LABWHC1 15:44
PROVIDERS: ATTEND Psychiatry & Neurology Psychiatry
DX: E03.9 Hypothyroidism, unspecified (principal)
CPT/HCPCS: 36415; 80053; 84436; 84443; 85027

== ENCOUNTER → 2020-05-27 | Outpatient (CLI) | payer MEDICARE, BC ==
--- NOTE | 2020-05-27 21:06 | XR ---
EXAMINATION TYPE: XR chest 2V DATE OF EXAM: 05/27/2020 CLINICAL HISTORY: Shortness breath. TECHNIQUE: Frontal and lateral views of the chest are obtained. COMPARISON: 06/02/2018 chest radiograph FINDINGS: The cardiomediastinal silhouette is within normal limits for size. Pulmonary vasculature i s normal. There is no focal air space opacity, pleural effusion, or pneumothorax seen. The osseous st ructures are intact. IMPRESSION: No acute cardiopulmonary process.
--- NOTE | 2020-05-28 11:02 | XR ---
EXAMINATION TYPE: XR lumbar spine 2 or 3V DATE OF EXAM: 05/27/2020 CLINICAL HISTORY: Pain TECHNIQUE: Frontal and lateral images of the lumbar spine obtained. COMPARISON: 10/18/2018 lumbar radiograph FINDINGS: There are 5 lumbar type vertebral bodies identified. There is levocurvature of the lumbar spine which is mildly increased versus 10/18/2018. There is unchanged mild superior endplate compress ion deformity of L3. Diffuse degenerative disc disease, osteophytic spurring, and facet arthropathy, which is worse at the inferior spine. No acute fracture or dislocation. Redemonstrated right renal calculi measuring up to 18 mm over the upper pole and 10 mm, 5 mm, and 4 m m in the lower pole. IMPRESSION: 1. No acute fracture or dislocation is seen in the lumbar spine. 2. Unchanged mild superior endplate compression deformity of L3 versus 10/18/2018. 3. Increased degenerative disc disease and levocurvature of the lumbar spine versus 10/18/2018. 4. Multiple right nephrolithiasis redemonstrated.
== END | disposition home or self-care (01) ==
LOC: RADXRMAIN 16:33
PROVIDERS: ATTEND Psychiatry & Neurology Psychiatry
DX: M51.36 Other intervertebral disc degeneration, lumbar region (principal); M43.8X6 Other specified deforming dorsopathies, lumbar region; R06.02 Shortness of breath
CPT/HCPCS: 71046; 72100

== ENCOUNTER → 2020-06-04 | Outpatient (CLI) | payer MEDICARE, BC ==
--- NOTE | 2020-06-05 10:31 | ECHOF ---
Referral Reason:R06.2 Shortness of Breath MEASUREMENTS -------- HEIGHT: 162.6 cm WEIGHT: 63.5 kg BP: IVSd: 0.9 cm (0.6 - 1.1) LVIDd: 2.6 cm (3.9 - 5.3) LVPWd: 1.2 cm (0.6 - 1.1) IVSs: 1.7 cm LVIDs: 1.1 cm LVPWs: 1.4 cm LAESV Index (A-L): 13.87 ml/m Ao Diam: 2.8 cm (2.0 - 3.7) AV Cusp: 1.8 cm (1.5 - 2.6) LA Diam: 2.6 cm (2.7 - 3.8) MV EXCURSION: 12.495 mm (> 18.000) MV EF SLOPE: 47 mm/s (70 - 150) EPSS: 0.3 cm MV E Cristian: 0.69 m/s MV DecT: 129 ms MV A Cristian: 1.10 m/s MV E/A Ratio: 0.63 AR PHT: 208 ms RAP: 5.00 mmHg RVSP: 20.32 mmHg FINDINGS -------- This was a technically good study. The left ventricular size is normal. There is mild concentric left ventricular hypertrophy. Overa ll left ventricular systolic function is normal with, an EF between 55 - 60 %. The diastolic fillin g pattern is normal for the age of the patient 13.31. The right ventricle is normal in size. The left atrial size is normal. Normal LA size by volume 22+/-6 ml/m2. The right atrial size is normal. Trace amount of aortic regurgitation. The mitral valve is normal. There is trace mitral regurgitation. The tricuspid valve appears structurally normal. Trace tricuspid regurgitation present. Right sulaiman tricular systolic pressure is normal at < 35 mmHg. There is no pulmonic regurgitation present. The aortic root size is normal. Normal inferior vena cava with normal inspiratory collapse consistent with estimated right atrial pre ssure of 5 mmHg. There is no pericardial effusion. CONCLUSIONS -------- 1. The left ventricular size is normal. 2. There is mild concentric left ventricular hypertrophy. 3. Overall left ventricular systolic function is normal with, an EF between 55 - 60 %. 4. The diastolic filling pattern is normal for the age of the patient 13.31 5. Trace amount of aortic regurgitation. 6. There is trace mitral regurgitation. 7. Trace tricuspid regurgitation present. 8. There is no pericardial effusion. SENIOR CENTER MANAGER: Deysi Sweeney RDCS
== END | disposition home or self-care (01) ==
LOC: RADECHMAIN 14:57
PROVIDERS: ATTEND Psychiatry & Neurology Psychiatry
DX: I51.7 Cardiomegaly (principal)
CPT/HCPCS: 93005; 93306

== ENCOUNTER → 2020-06-10 | Outpatient (CLI) | payer MEDICARE, BC ==
--- NOTE | 2020-06-10 16:17 | US ---
EXAMINATION TYPE: US kidneys/renal and bladder DATE OF EXAM: 06/10/2020 COMPARISON: None CLINICAL HISTORY: 80-year-old female N20.0 CALCULUS OF KIDNEY. Renal calculus TECHNIQUE: Multiple sonographic images of the kidneys and bladder are obtained. FINDINGS: EXAM MEASUREMENTS: Right Kidney: 8.9 x 4.4 x 3.8 cm cm Left Kidney: 9.0 x 4.4 x 4.1 cm Right Kidney: Kidney small in size. No evidence for hydronephrosis. Multiple (up to 4) renal calculus scattered throughout kidney 7 and 8mm in size Left Kidney: No hydronephrosis. Bladder: wnl Bilateral Jets seen: Yes IMPRESSION: 1. Kidneys are slightly small in size. There may be underlying chronic medical renal disease. No hydr onephrosis. 2. Right-sided nephrolithiasis measuring up to 8 mm.
== END | disposition home or self-care (01) ==
LOC: RADUSWWP 15:01
PROVIDERS: ATTEND Psychiatry & Neurology Psychiatry
DX: N20.0 Calculus of kidney (principal); N27.1 Small kidney, bilateral
CPT/HCPCS: 76770